=== PATIENT | male | born 1975 | race Caucasian/White ===

== ENCOUNTER 2019-05-28 20:52 | Emergency (ER) | payer SELFPAY ==
[2019-05-28] MEDS ORDERED: NORMAL SALINE 1000 ML 1,000 ML IV ONE (22:23)
--- NOTE | 2019-05-28 22:25 | ER Document Report ---
ED Medical Screen (RME) - General Chief Complaint: Medical Clearance Stated Complaint: MEDICAL CLEARANCE Notes: Patient is a 44-year-old white male with no reported past medical history who presents to the emergency department tonight sent by his friends for a medical clearance for alcohol detox. Patient was seen across the street for detox, blew 0.45 and was told he needs to be 0.2 or lower for he can report for detox. He was sent here for medical clearance. The patient denies any problems or complaints at this time. States his last drink was whiskey about 4 hours ago. He normally drinks a pint of whiskey per day. Occasional marijuana usage. I have treated and performed a rapid initial assessment of this patient. A comprehensive ED assessment and evaluation of the patient, analysis of test results and completion of medical decision making process will be conducted by additional ED providers. PHYSICAL EXAMINATION: GENERAL: Well-appearing, well-nourished and in no acute distress. A&Ox4. Answers questions appropriately. - Related Data Allergies/Adverse Reactions: No Known Allergies Allergy (Verified 05/28/19 22:19) Physical Exam - Vital signs Vitals: Temp Pulse Resp BP Pulse Ox 99.0 F 129 H 20 112/81 95 05/28/19 21:26 05/28/19 21:26 05/28/19 21:26 05/28/19 21:26 05/28/19 21:26 Course - Vital Signs Vital signs: Temp Pulse Resp BP Pulse Ox 99.0 F 129 H 20 112/81 95 05/28/19 21:26 05/28/19 21:26 05/28/19 21:26 05/28/19 21:26 05/28/19 21:26
[2019-05-28 23:08] LABS: ABSOLUTE BASOPHILS # (AUTO) 0.1 10^3/uL (0.0-0.2); ABSOLUTE EOSINOPHILS # (AUTO) 0.2 10^3/uL (0.0-0.6); ABSOLUTE LYMPHOCYTES (AUTO) 1.4 10^3/uL (0.5-4.7); ABSOLUTE MONOCYTES (AUTO) 0.3 10^3/uL (0.1-1.4); ABSOLUTE NEUT (AUTO) 1.5 10^3/uL (1.7-8.2); APPEARANCE,URINE SLIGHTLY-CLOUDY; BASOPHILS % (AUTO) 2.1 % (0-2); BILIRUBIN,URINE NEGATIVE (NEGATIVE); COLOR,URINE AMBER; EOSINOPHILS % (AUTO) 5.7 % (0-6); GLUCOSE, URINE 50 mg/dL (NEGATIVE); KETONES,URINE TRACE mg/dL (NEGATIVE); LEUKOCYTE ESTERASE,URINE NEGATIVE (NEGATIVE); LYMPHOCYTES % (AUTO) 39.4 % (13-45); MEAN CORPUSCULAR HEMOGLOBIN 34.1 pg (27.0-33.4); MEAN CORPUSCULAR HGB CONC 34.7 g/dL (32.0-36.0); MEAN CORPUSCULAR VOLUME 98 fl (80-97); MONOCYTES % (AUTO) 9.3 % (3-13); NITRITE,URINE NEGATIVE (NEGATIVE); PLATELET COUNT 226 10^3/uL (150-450); PROTEIN,URINE 30 mg/dL (NEGATIVE); RED BLOOD COUNT 4.39 10^6/uL (4.35-5.55); RED CELL DISTRIBUTION WIDTH 13.8 % (11.5-14.0); SEGMENTED NEUTROPHILS % (AUTO) 43.5 % (42-78); TOTAL CELLS COUNTED % (AUTO) 100 %; URINE SPECIFIC GRAVITY 1.033; WHITE BLOOD COUNT 3.4 10^3/uL (4.0-10.5)
--- NOTE | 2019-05-28 23:16 | EKG REPORT ---
SEVERITY:- OTHERWISE NORMAL ECG - SINUS TACHYCARDIA : Confirmed by: Tanner Caban MD 28-May-2019 23:15:01
[2019-05-28 23:20] LABS: URINE AMPHETAMINES SCREEN NEGATIVE; URINE BARBITURATES SCREEN NEGATIVE; URINE BENZODIAZEPINES SCREEN NEGATIVE; URINE COCAINE SCREEN NEGATIVE; URINE METHADONE SCREEN NEGATIVE; URINE PHENCYCLIDINE SCREEN NEGATIVE
[2019-05-28 23:23] LABS: URINE MARIJUANA (THC) SCREEN UNCONFIRMED POSITIVE
[2019-05-28 23:30] LABS: ALBUMIN 4.5 g/dL (3.5-5.0); ALCOHOL 293 mg/dL (NONE DETECTED); ALKALINE PHOSPHATASE 101 U/L (38-126); ANION GAP 14 (5-19); ASPARTATE AMINO TRANSFERASE 343 U/L (17-59); BILIRUBIN,DIRECT 0.5 mg/dL (0.0-0.4); BILIRUBIN,TOTAL 0.8 mg/dL (0.2-1.3); BLOOD UREA NITROGEN 12 mg/dL (7-20); CALCIUM 9.3 mg/dL (8.4-10.2); CARBON DIOXIDE 32 mmol/L (22-30); CHLORIDE 97 mmol/L (98-107); GLUCOSE 112 mg/dL (75-110); POTASSIUM 3.9 mmol/L (3.6-5.0); TOTAL PROTEIN 8.5 g/dL (6.3-8.2)
[2019-05-28 23:32] LABS: ACETAMINOPHEN < 10 ug/mL (10-30)
[2019-05-28] MEDS ORDERED: ONDANSETRON HCL INJ/PF 4 MG/2 ML SDV IV ONE (23:55)
--- NOTE | 2019-05-29 00:25 | ER Document Report ---
Entered by MARQUITA REID SCRIBE 05/28/19 2349 Acting as scribe for:RAYMUNDO SUNSHINE IV, MD ED General - General Chief Complaint: ETOH Abuse Stated Complaint: MEDICAL CLEARANCE Time Seen by Provider: 05/28/19 23:48 Mode of Arrival: Ambulatory Information source: Patient Notes: This 44 year old male patient with a history of ETOH abuse presents to the ED today seeking medical clearance for ETOH detox at [facility]. Patient states that he was at a [facility] prior to arrival and his RAUDEL was 0.35. Patient reports that the staff at [facility] stated that his RAUDEL has to be 0.2 or lower to be eligible for detox. Patient states that he normally drinks a pint of whiskey every day and that his last drink was around 1800 this evening. Patient denies any other symptoms. TRAVEL OUTSIDE OF THE [place] IN LAST 30 DAYS: No - Related Data Allergies/Adverse Reactions: No Known Allergies Allergy (Verified 05/28/19 22:19) Past Medical History - General Information source: Patient - Social History Smoking Status: Former Smoker Cigarette use (# per day): No Chew tobacco use (# tins/day): No Smoking Education Provided: No Frequency of alcohol use: 5TH A DAY OF WHISKY Drug Abuse: Marijuana Family History: Reviewed & Not Pertinent Patient has suicidal ideation: No Patient has homicidal ideation: No Review of Systems - Review of Systems Constitutional: See HPI, Other - ETOH abuse EENT: No symptoms reported Cardiovascular: No symptoms reported Respiratory: No symptoms reported Gastrointestinal: No symptoms reported Genitourinary: No symptoms reported Male Genitourinary: No symptoms reported Musculoskeletal: No symptoms reported Skin: No symptoms reported Hematologic/Lymphatic: No symptoms reported Neurological/Psychological: No symptoms reported -: Yes All other systems reviewed and negative Physical Exam - Vital signs Vitals: Temp Pulse Resp BP Pulse Ox 99.0 F 129 H 20 112/81 95 05/28/19 21:26 05/28/19 21:26 05/28/19 21:26 05/28/19 21:26 05/28/19 21:26 Interpretation: Tachycardic - General General appearance: Alert, Other - Depressed - HEENT Head: Normocephalic, Atraumatic Eyes: Normal Pupils: PERRL - Respiratory Respiratory status: No respiratory distress Chest status: Nontender Breath sounds: Normal Chest palpation: Normal - Cardiovascular Rhythm: Tachycardia Heart sounds: Normal auscultation Murmur: No Friction rub: No Gallop: None auscultated - Abdominal Inspection: Normal Distension: No distension Bowel sounds: Normal Tenderness: Nontender - Abdomen soft Organomegaly: No organomegaly - Back Back: Normal, Nontender - Extremities General upper extremity: Normal inspection General lower extremity: Normal inspection - Neurological Neuro grossly intact: Yes - Psychological Associated symptoms: Depressed - Skin Skin Temperature: Warm Skin Moisture: Dry Skin Color: Normal Course - Re-evaluation Re-evalutation: 05/29/19 07:04 Patient's blood alcohol level is now below 200. This MD was informed by the charge nurse that the patient could be discharged and transferred ported over to [facility] by 1 of their employees. - Vital Signs Vital signs: Temp Pulse Resp BP Pulse Ox 99.0 F 129 H 13 105/81 96 05/28/19 21:26 05/28/19 21:26 05/29/19 02:01 05/29/19 02:01 05/29/19 02:01 - Laboratory Result Diagrams: 05/28/19 22:40 05/28/19 22:40 Laboratory results interpreted by me: 05/28/19 05/28/19 05/28/19 22:40 22:40 22:40 WBC 3.4 L MCV 98 H MCH 34.1 H Baso % (Auto) 2.1 H Absolute Neuts (auto) 1.5 L Chloride 97 L Carbon Dioxide 32 H Glucose 112 H Direct Bilirubin 0.5 H AST 343 H ALT 148 H Total Protein 8.5 H Lipase 1470.8 H Urine Protein 30 H Urine Glucose (UA) 50 H Urine Ketones TRACE H Urine Urobilinogen 2.0 H Salicylates 1.0 L Acetaminophen < 10 L Discharge - Discharge Clinical Impression: Alcohol use disorder Condition: Good Disposition: OTHER Additional Instructions: Return to the Emergency Department without delay if any worse. HOME CARE INSTRUCTIONS & INFORMATION: Thank you for choosing us for your medical needs. We hope you're satisfied with the care you received. After you leave, you must properly care for your problem and, at the same time, observe its progress. Any condition can change. Some illnesses can change rapidly over hours or days. If your condition worsens, return to the Emergency Department or see your physician promptly. ABOUT YOUR X-RAYS AND EKG'S: If you had an EKG or X-rays taken, they have been read by the Emergency Physician. The X-rays and EKG's will also be read by a Radiologist or Resist Coater Developer within 24 hours. If discrepancies are noted, you will be notified by telephone. Please be certain the ED has a correct telephone number & address where you can be reached. Also, realize that some fractures or abnormalities do not show up on initial X-rays. If your symptoms continue, see your physician. ABOUT YOUR LABORATORY TEST: If you had laboratory tests, the results have been reviewed by the Emergency Physician. Some test results (for example cultures) may not be available for several days. You will be contacted if any test result shows you need additional treatment. Please be certain the ED has a correct telephone number and address where you can be reached. ABOUT YOUR MEDICATIONS: You will receive instructions on how to take your medicine on the prescription label you receive. Additional information may be p rovided by the Pharmacy. If you have questions afterwards, call the ED for clarification or further instructions. Some prescribed medications may cause drowsiness. Do not perform tasks such as driving a car or operating machinery without consulting your Pharmacist. If you feel you need a refill of pain medication, your condition will need re-evaluation. Please do not call for a refill of any medication. ABOUT YOUR SIGNATURE: Signature of this document acknowledges to followin. Understanding that you received emergency treatment and that you may be released before al medical problems are known or treated. Please be certain the ED has a correct phone number & address where you can be reached. 2. Acknowledgement that you will arrange for follow-up care as recommended. 3. Authorization for the Emergency Physician to provide information to your follow-up Physician in order to maximize your care. AT ANY TIME, IF YOUR SYMPTOMS CHANGE SIGNIFICANTLY OR WORSEN OR YOU DEVELOP NEW SYMPTOMS, RETURN TO THE EMERGENCY DEPARTMENT IMMEDIATELY FOR RE-EVALUATION. OUR GOAL IS TO PROVIDE EXCELLENT MEDICAL CARE! WE HOPE THAT WE HAVE MET YOUR EXPECTATIONS DURING YOUR EMERGENCY DEPARTMENT VISIT AND THAT YOU FEEL YOU HAVE RECEIVED EXCELLENT CARE! I personally performed the services described in the documentation, reviewed and edited the documentation which was dictated to the scribe in my presence, and it accurately records my words and actions.
[2019-05-29 08:19] VITALS: BP 139/80
--- NOTE | 2019-05-29 08:35 | RADIOLOGY REPORT (SQ) ---
EXAM DESCRIPTION: CHEST SINGLE VIEW COMPLETED DATE/TIME: 05/29/2019 7:34 am REASON FOR STUDY: cough COMPARISON: None. EXAM PARAMETERS: NUMBER OF VIEWS: One view. TECHNIQUE: An AP view of the chest was obtained. RADIATION DOSE: NA LIMITATIONS: None. FINDINGS: LUNGS AND PLEURA: No consolidation, pleural effusion or pneumothorax. MEDIASTINUM AND HILAR STRUCTURES: No mediastinal or hilar contour abnormality. HEART AND VASCULAR STRUCTURES: The cardiac silhouette and pulmonary vasculature are within normal wesley its. BONES: No acute findings. HARDWARE: None in the chest. OTHER: No other finding. IMPRESSION: No acute cardiopulmonary process. TECHNICAL DOCUMENTATION: JOB ID: [id number] 2010 [employer]- All Rights Reserved Reading location - IP/workstation name: [email or web address]
== END 2019-05-29 08:56 | disposition other institution (70) ==
LOC: ER 20:52
DX: F10.10 Alcohol abuse, uncomplicated (principal); F12.10 Cannabis abuse, uncomplicated; R00.0 Tachycardia, unspecified; Z87.891 Personal history of nicotine dependence
CPT/HCPCS: 93005; 99285; 96361; 96374; 36415; 80307 ×4; 83690; 85025; 80053; 81001; 71045; 93010; J2405; J7030